=== PATIENT | female | born 1975 | race Caucasian/White ===

== ENCOUNTER 2022-12-25 07:29 | Outpatient (REF) | payer OTHER, SELFPAY ==
--- NOTE | ~2022-12-25 | XR_ITS ---
EXAMINATION: XR CHEST CLINICAL INFORMATION: Chronic cough. COMPARISON: 04/14/2012 TECHNIQUE: 2 views of the chest were obtained. FINDINGS: There is no evidence of acute parenchymal disease, pneumothorax, or pleural effusion. Heart is normal size. No evidence of pulmonary edema. There are some mildly increased interstitial lung markings seen in the mid to lower lungs. No significant bronchial wall thickening is appreciated. XR/XR chest 2V IMPRESSION: No acute disease.
[2022-12-25 08:30] LABS: Hematocrit 41.6 % (37.0-47.0); Hemoglobin 13.9 g/dl (12.0-16.0); Mean Corpuscular HGB Conc 33.4 g/dl (31.0-35.0); Mean Corpuscular Volume 92.9 fL (80.0-98.0); Mean Platelet Volume 10.2 fL (9.4-12.3); Platelet Count 326 X10*3/uL (160-400); Red Blood Count 4.48 X10*6/uL (4.20-5.50); Red Cell Distribution Width 12.9 % (11.0-16.0); White Blood Count 10.8 X10*3/uL (4.8-10.8)
[2022-12-25 08:58] LABS: Alanine Aminotransferase 30 U/L (0-31); Albumin Level 4.1 g/dL (3.5-5.0); Alkaline Phosphatase 82 U/L (39-117); Anion Gap 12 (12-20); Aspartate Amino Transferase 22 U/L (5-31); Bilirubin Total 0.4 mg/dL (0.0-1.0); Blood Urea Nitrogen 9 mg/dL (9-16); Carbon Dioxide 28 mmol/L (22-29); Chloride 104 mmol/L (96-108); Cholesterol 195 mg/dL; Estimated Glomerular Filt Rate > 60; Glucose Fasting 84 mg/dL (60-99); HDL Cholesterol 46 mg/dL; LDL Cholesterol Calculated 129 mg/dl; Sodium 140 mmol/L (135-145); Total Protein 7.6 g/dL (6.5-8.0); Triglycerides 100 mg/dL
[2022-12-25 09:46] LABS: Appearance Urine Clear; Color Urine Yellow; Glucose Urine UA Negative (Negative); Leukocyte Esterase Urine Negative (Negative); Nitrite Urine Negative (Negative); PH 7.5 (5.0-9.0); Specific Gravity - Urine <= 1.005 (1.005-1.025); Urine Blood Negative (Negative); Urine Ketones Negative (Negative); Urine Protein Negative (Neg-Trace)
== END 2022-12-25 07:30 | disposition home or self-care (01) ==
LOC: HO.LAB 07:29
PROVIDERS: PCP Physician Assistant; Visit Provider Physician Assistant
DX: E78.00 Pure hypercholesterolemia, unspecified (principal); R10.9 Unspecified abdominal pain; R30.0 Dysuria; R05.3 Chronic cough
CPT/HCPCS: 36415; 71046; 80053; 80061; 81003; 85027

== ENCOUNTER 2023-01-07 07:37 | Outpatient (REF) | payer OTHER, SELFPAY ==
--- NOTE | ~2023-01-07 | US_ITS ---
EXAMINATION: US RETROPERITONEAL LIMITED (RENAL ONLY) CLINICAL INFORMATION: Unspecified abdominal pain. COMPARISON: None available. TECHNIQUE: Real-time imaging of the kidneys. FINDINGS: RIGHT KIDNEY: 12.9 x 4.8 x 6.3 cm (SAG x AP x TRV). The kidney is normal in size, contour, and echogenicity. Renal cortical thickness is normal. No calculi or focal parenchymal lesions. No hydronephrosis. LEFT KIDNEY: 10.7 x 6.5 x 5.6 cm (SAG x AP x TRV). The kidney is normal in size, contour, and echogenicity. Renal cortical thickness is normal. No calculi or focal parenchymal lesions. No hydronephrosis. US/US renal BI IMPRESSION: Unremarkable renal ultrasound.
== END 2023-01-07 07:38 | disposition home or self-care (01) ==
LOC: HO.US 07:37
PROVIDERS: PCP Physician Assistant; Visit Provider Physician Assistant
DX: R10.9 Unspecified abdominal pain (principal)
CPT/HCPCS: 76775

== ENCOUNTER 2023-02-02 13:57 | Outpatient (AMB) | payer OTHER, SELFPAY ==
--- NOTE | 2023-02-02 13:58 | MHC.PC.OV ---
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 Patient has a pas t medical history significant for ob esity and? HLD, to bacco dependency. Concern--> last v isit we discussed her cough and sinu s congestion, was started on azithro mycin course thoug h felt it was not effective. Does n ot take any allerg y medication or na james sprays at this time. She attrib utes her symptoms to perhaps having mold in her apartm ent that she may b e allergic to. -- >Noted elevated bl ood pressure readi ngs today in offic e. Has had histor y of elevated bloo d pressure reading s. Not interested in starting blood pressure medicati on at this time a to work lifestyle and dietary change s to reducd her BP . .. History of Hy perlipidemia: Rec ent fasting lipid panel showing appr opriate LDL and to theodora cholesterol. Tobacco dependency :? Has been smokin g since age 15, re ports she has incr eased her smoking as of late due to her stress and anx iety.? She does re port having a chrome polisher jose cough that at times is productiv e.? She knows this is a direct resul t of her smoking s he has a lot of is sues stopping smok ing.? Nicotine pat ches and gum have not been affective Laboratory Tests 12/25/22 12/25/22 08:03 08:03 RBC 4.48 Creatinine 0.81 Cholesterol 195 LDL Cholesterol, C alc 129 PFSH Surgical History H/O LEEP Family History Father CVA (cerebral vascular accident), Onset Age: 42 Other Hypertension Substance abuse Social History Housing: Apartment Alcohol intake: former Year quit: 2012 Patient Tobacco Use Status: Current everyday Tobacco user Tobacco use type: Cigarette Cigarette Packs Per Day: 1.5 Cigarettes Per Day: 30 e-Cigarette/Vaping Use: Never Used Second Hand Smoke Exposure: No service: No Current occupational status: unemployed Current occupational exposures/hazards: No Cognitive needs: No Hearing needs: No Vision needs: No Questionnaire Thrive Questionnaire Date Thrive assessed: 12/23/22 AUDIT C Alcohol Use Questionnaire (AUDIT-C) 1. How often do you have a drink containing alcohol?: Never 3. How often do you have six or more drinks on one occasion?: Never Total Score: 0 CATRINA-7 AMB Questionnaire CATRINA-7 Date CATRINA - 7 assessed: 12/23/22 Feeling nervous, anxious, or on edge: 0 = Not at all Not being able to stop or control worryin = Not at all Worrying too much about different things: 0 = Not at all Trouble relaxin = Not at all Being so restless that it is hard to sit still: 0 = Not at all Becoming easily annoyed or irritable: 0 = Not at all Feeling afraid as if something awful might happen: 0 = Not at all Total CATRINA-7 score (0-4 normal; 5-9 mild; 10-14 moderate; 15-21 severe): 0 Source: Developed by Drs. Carlos Manuel Ramsey, Terri Hope, Stuart Woodson and colleagues, with an educational lauren from [employer] CATRINA-7 Assessment Billing CATRINA-7 Assessment Tool: CATRINA-7 Assessment 58356 Review of Systems Const Denies headache(s) Eyes Denies loss of vision ENT Denies vertigo, Denies dizziness, Denies headache(s) and Denies sore throat Card Denies chest pain, Denies leg edema and Denies lightheadedness Resp Denies cough, Denies hemoptysis and Denies wheezing GI Denies abdominal pain, Denies melena, Denies constipation, Denies diarrhea and Denies vomiting Denies urinary frequency, Denies dysuria and Denies urinary urgency Musc Denies arthralgias, Denies joint swelling, Denies numbness and Denies tingling Neuro Denies Abnormal speech present, Denies behavioral changes, Denies vertigo, Denies dizziness, Denies headache(s), Denies loss of vision, Denies memory loss, Denies numbness and Denies tingling Psych Denies anxiety, Denies behavioral changes, Denies depression, Denies memory loss and Denies panic attacks Sukumar/Lymph Denies easy bleeding and Denies easy bruising Aller/Immun Denies wheezing Physical exam (Primary Care) Vital Signs: Last Vital Signs Pulse 86 02/02/23 13:59 BP 140/82 H 02/02/23 13:59 Pulse Ox 98 02/02/23 13:59 Oxygen Delivery Method Room Air 02/02/23 13:59 BMI result Body Mass Index 35.5 BMI Assessment/Plan discussion: High Tobacco/Smoking Status: Tobacco use Status Tobacco use date assessed 02/02/23 02/02/23 14:04 Patient Tobacco Use Status Current everyday Tobacco 02/02/23 14:04 Tobacco use type Cigarette 02/02/23 14:04 e-Cigarette/Vaping Use Never Used 02/02/23 14:04 Are you ready to quit: Yes Tobacco cessation counseling provided: Yes Relapse Prevention: discussed the importance of a supportive environment, discussed negative mood or depression after quitting, weight gain after smoking is common and discussed dietary, exercise and/or lifestyle changes Number of minutes spent counselin CPT code: 92462 - 4-10 Minutes Thrive Assessment: Date of Thrive Assessment Date Thrive assessed 12/23/22 02/02/23 14:04 Const Other: OBESE General: healthy appearing, no acute distress, alert and awake Nutritional Appearance: well nourished Orientation/consciousness: oriented to person, oriented to place and oriented to time HENMT Other: MILD FRONTAL SINUS TENDERNESS TO PALPATION Ears: TM's normal bilaterally General nose exam: Normal nasal mucous membranes and turbinates present Eyes Conjunctivae: conjunctivae normal Sclerae: sclerae normal Pupils: Equal, round and reactive pupils present Neck Neck: Yes no lymphadenopathy and Yes no JVD Thyroid: Thyroid normal Carotids: no bruits Resp Other: OCCASIONAL DRY COUGH DURING EXAM Effort & Inspection: normal respiratory effort, Actively coughing and not tachypneic Auscultation: no crackles, no rales, no rhonchi and no wheezes Cardio Rate: regular rate Rhythm: regular rhythm Heart sounds: no murmurs and normal S1 and S2 GI Palpation (GI): Soft to palpation, nontender, no hepatomegaly and no splenomegaly Auscultation: normal bowel sounds Skin General skin exam: no rashes or lesions noted and dry skin Neuro General: oriented to person, oriented to place and oriented to time Cranial nerves: Yes Equal, round and reactive pupils present Speech: No Abnormal speech present Gait exam (Neuro): Normal gait present Motor exam (neuro): no tremor noted Extrem Right upper extremity: full ROM Left upper extremity: full ROM Right lower extremity: full ROM; no edema Left lower extremity: full ROM; no edema Psych Mental Status: mental status grossly normal Speech and movement: Normal speech and movement present Affect: normal affect Attitude: cooperative Thought process: Normal thought process present Assessment and Plan Assessment & Plan (1) Tobacco dependence: Code(s): F17.200 - Nicotine dependence, unspecified, uncomplicated Plan: Patient does understand she needs to quit smoking and is willing to try nicotine lozenges to help her quit smoking. (2) Obese: Code(s): E66.9 - Obesity, unspecified Qualifiers: Body mass index: BMI 35.0-35.9 Obesity classification: adult class 2 (BMI 35 - 39.9) Obesity type: due to excess calories Serious obesity comorbidity presence: without serious comorbidity Qualified Code(s): E66.09 - Other obesity due to excess calories; Z68.35 - Body mass index [BMI] 35.0-35.9, adult Plan: Patient does understand her BMI is over 30 will work on being more physically active and adapting to better eating habits to reduce her weight (3) Allergic rhinitis: Code(s): J30.9 - Allergic rhinitis, unspecified Qualifiers: Allergic rhinitis seasonality: unspecified Allergic rhinitis trigger: other Qualified Code(s): J30.89 - Other allergic rhinitis Plan: Patient does have signs and symptoms of allergic rhinitis and sinusitis. She believes she has mold in her apartment that she has discussed with her landlord whom is not taking initiative. Due to her pulmonary issues with COPD ? asthma I Will try to set her up with a home visit to evaluate her home for by mental factors causing her cough. (4) CATRINA (generalized anxiety disorder): Code(s): F41.1 - Generalized anxiety disorder Plan: Patient reports her anxiety is fairly well controlled. She does have personal issues at home that causes her stress and anxiety. She does use lorazepam on a very limited p.r.n. basis (5) HTN (hypertension): Code(s): I10 - Essential (primary) hypertension Qualifiers: Hypertension type: primary hypertension Qualified Code(s): I10 - Essential (primary) hypertension Plan: Patient's blood pressure elevated today in office. Has had elevated blood pressure readings at previous MD visits. Advised on starting low-dose blood pressure medication though patient would like to continue working on lifestyle nonpharmacological treatments for her blood pressure at this time. Medications: New loratadine 10 mg PO DAILY 30 days 30 tabs 3RF J30.9 - Allergic rhinitis, unspecified fluticasone propionate 50 mcg/actuation (Flonase Allergy Relief) administer into each nostril 1 spray intranasal BID 30 days 16 grams 1RF J30.9 - Allergic rhinitis, unspecified nicotine (polacrilex) 2 mg buccal Q2H 15 days PRN 110 ea 0RF nicotine cravings F17.200 - Nicotine dependence, unspecified, uncomplicated Coding Level of Care Code Est Pt Level 4 (42193) Diagnoses Tobacco dependence F17.200 Obese E66.09; Z68.35 Body mass index: BMI 35.0-35.9 Obesity classification: adult class 2 (BMI 35 - 39.9) Obesity type: due to excess calories Serious obesity comorbidity presence: without serious comorbidity Allergic rhinitis J30.89 Allergic rhinitis seasonality: unspecified Allergic rhinitis trigger: other CATRINA (generalized anxiety disorder) F41.1 HTN (hypertension) I10 Hypertension type: primary hypertension Additional Codes CATRINA-7 Assessment Billing - CATRINA-7 Assessment Tool: CATRINA-7 Assessment 54246 ([id number]) Vital Signs *Quality* - CPT code: 67631 - 4-10 Minutes ([id number])
[2023-02-02 13:59] VITALS: BP 140/82; PULSE 86; O2SAT 98; BMI 35.5
== END 2023-02-02 14:27 | disposition home or self-care (01) ==
PROVIDERS: PCP Physician Assistant; Visit Provider Physician Assistant
DX: I10 Essential (primary) hypertension (principal); F17.210 Nicotine dependence, cigarettes, uncomplicated; E66.09 Other obesity due to excess calories; Z68.35 Body mass index [BMI] 35.0-35.9, adult; J30.89 Other allergic rhinitis; F41.1 Generalized anxiety disorder
CPT/HCPCS: 99214; 99406

== ENCOUNTER 2023-07-14 13:39 | Outpatient (AMB) | payer OTHER, SELFPAY ==
--- NOTE | 2023-07-14 13:44 | MHC.PC.OV ---
Vital Signs 07/14/23 13:45 Height 5 ft 7 in Weight 215 lb BMI 33.7 BP 160/88 H Blood Pressure Location Lt brachial Position Sitting Respiration 18 Pulse 86 Pulse Source Palpation Intake Visit Reasons: Check up Intake Note: Patient is here to follow up on COPD. Pt has been wheezing since last visit. Medical Resident Required: No Accompanied by: Self / Same As Patient Allergies No Known Allergies Allergy (Verified 07/14/23 13:53) Medication List - Last Reconciled 07/14/23 by Mau Noriega PA-C albuterol sulfate 90 mcg/actuation 1 inh inhalation QID 30 days fluticasone propionate 50 mcg/actuation (Flonase Allergy Relief) 1 spray intranasal BID 30 days loratadine 10 mg PO DAILY 30 days lorazepam 0.5 mg PO DAILY PRN 10 days nicotine (polacrilex) 2 mg buccal Q2H PRN 15 days Tobacco use date assessed: 07/14/23 Dental Screening Dental Screen Date: 07/14/23 Did you have a dental visit in the last 12 months?: Yes Did you have a dental problem in the last 6 months where you did not have access to dental care?: No Was dental information given to patient?: Patient has dentist HPI Check up HPI Details Patient is a 47-year-old female here today for follow-up visit Patient has a past medical history significant for obesity and? HLD, tobacco dependency. Concern--> HTN : Patient's blood pressure elevated today in office. She has lost weight drinking a new tea. She is now willing to start blood pressure medication. .. History of Hyperlipidemia: Recent fasting lipid panel showing appropriate LDL and total cholesterol. Tobacco dependency:? Has been smoking since age 15, reports she has increased her smoking as of late due to her stress and anxiety.? She does report having a chronic cough that at times is productive.? She knows this is a direct result of her smoking she has a lot of issues stopping smoking.? Nicotine patches and gum have not been affective. Seems to have COPD thus will start maintenance inhaler for better control over her COPD symptoms. She is willing to try generic Chantix to completely quit smoking. Laboratory Tests 12/25/22 08:03 Cholesterol 195 PFSH Surgical History H/O LEEP Family History Father CVA (cerebral vascular accident), Onset Age: 42 Other Hypertension Substance abuse Social History Housing: Apartment Alcohol intake: former Year quit: 2013 Patient Tobacco Use Status: Current everyday Tobacco user Tobacco use type: Cigarette Cigarette Packs Per Day: 1.5 Cigarettes Per Day: 30 e-Cigarette/Vaping Use: Never Used Second Hand Smoke Exposure: No service: No Current occupational status: unemployed Current occupational exposures/hazards: No Cognitive needs: No Hearing needs: No Vision needs: No Questionnaire PHQ-9 Over the last 2 weeks, how often have you been bothered by any of the following problems? 1. Little interest or pleasure in doing things: not at all 2. Feeling down, depressed, or hopeless: not at all 3. Trouble falling or staying asleep, or sleeping too much: not at all 4. Feeling tired or having little energy: not at all 5. Poor appetite or overeating: not at all 6. Feeling bad about yourself - or that you are a failure or have let yourself or your family down: not at all 7. Trouble concentrating on things, such as reading the newspaper or watching television: not at all 8. Moving or speaking so slowly that other people could have noticed. Or the opposite - being so fidgety or restless that you have been moving around a lot more than usual: not at all 9. Thoughts that you would be better off or of hurting yourself in some way: not at all Total score: 0 Depression Screening Interpretation: Negative Depression Screening Done: Yes 12268 - PHQ-9 Billing: Yes Source: Developed by Drs. Carlos Manuel Ramsey, Terri Hope, Stuart Woodson and colleagues, with an educational lauren from [employer]. Thrive Questionnaire Date Thrive assessed: 07/14/23 I am a: Patient What is your living situation today?: I have a steady place to live Within the past 12 months, did the food you bought not last and you didn't have the money to get more?: Never true Within the past 12 months, did you worry whether your food would run out before you got money to buy more?: Never true Do you have trouble paying for medicines?: No Do you have trouble getting transportation to medical appointments?: No Do you have trouble paying your heating and electricity bill?: No Do you have trouble taking care of your child, family member or friend?: No Do you have trouble with day-to-day activities such as bathing, preparing meals, shopping, managing finances, etc.?: No Are you currently unemployed and looking for a job?: No Are you interested in more education?: No Please select the resources that you would like help with: None Currently or been in a relationship where the following occur: no concerns reported AUDIT C Alcohol Use Questionnaire (AUDIT-C) 1. How often do you have a drink containing alcohol?: Never 3. How often do you have six or more drinks on one occasion?: Never Total Score: 0 CATRINA-7 AMB Questionnaire CATRINA-7 Date CATRINA - 7 assessed: 07/14/23 Feeling nervous, anxious, or on edge: 2 = More than half the days Not being able to stop or control worryin = Nearly every day Worrying too much about different things: 1 = Several days Trouble relaxin = Nearly every day Being so restless that it is hard to sit still: 2 = More than half the days Becoming easily annoyed or irritable: 2 = More than half the days Feeling afraid as if something awful might happen: 3 = Nearly every day Total CATRINA-7 score (0-4 normal; 5-9 mild; 10-14 moderate; 15-21 severe): 16 Source: Developed by Drs. Carlos Manuel Ramsey, Terri Hope, Stuart Woodson and colleagues, with an educational lauren from [employer]. CATRINA-7 Assessment Billing CATRINA-7 Assessment Tool: CATRINA-7 Assessment 83030 Physical exam (Primary Care) Vital Signs: Last Vital Signs Pulse 86 07/14/23 13:45 Resp 18 07/14/23 13:45 BP 160/88 H 07/14/23 13:45 BMI result Body Mass Index 33.7 BMI Assessment/Plan discussion: High Tobacco/Smoking Status: Tobacco use Status Tobacco use date assessed 07/14/23 07/14/23 13:51 Patient Tobacco Use Status Current everyday Tobacco 07/14/23 13:45 Tobacco use type Cigarette 07/14/23 13:45 e-Cigarette/Vaping Use Never Used 07/14/23 13:45 Are you ready to quit: Yes Tobacco cessation counseling provided: Yes Items discussed: Nicotine replacement Relapse Prevention: discussed the importance of a supportive environment, discussed negative mood or depression after quitting, weight gain after smoking is common and discussed dietary, exercise and/or lifestyle changes Number of minutes spent counselin CPT code: 14996 - 4-10 Minutes PHQ-9: PHQ-9 Score PHQ-9: Total score 0 07/14/23 13:51 Depression Screening Interpretation: Negative Thrive Assessment: Date of Thrive Assessment Date Thrive assessed 07/14/23 07/14/23 13:51 Currently or been in a relationship where the following occur: no concerns reported Const Other: OBESE Assessment and Plan Assessment & Plan (1) HTN (hypertension): Code(s): I10 - Essential (primary) hypertension Qualifiers: Hypertension type: primary hypertension Qualified Code(s): I10 - Essential (primary) hypertension Plan: Patient's blood pressure remains elevated today in office. She is now willing to start hydrochlorothiazide 12.5 mg. Advised to monitor blood pressure at home with goal blood pressure to be below 140/90 (2) Tobacco dependence: Code(s): F17.200 - Nicotine dependence, unspecified, uncomplicated Plan: Can use to smoke a pack a cigarettes per day. She is somewhat interested in trying different nicotine replacement and trying generic Chantix. Will follow-up in 3 weeks to evaluate the effectiveness of the medication. (3) Obese: Code(s): E66.9 - Obesity, unspecified Qualifiers: Obesity type: due to excess calories Obesity classification: adult class 2 (BMI 35 - 39.9) Serious obesity comorbidity presence: without serious comorbidity Body mass index: BMI 35.0-35.9 Qualified Code(s): E66.09 - Other obesity due to excess calories; Z68.35 - Body mass index [BMI] 35.0-35.9, adult Plan: Patient does understand her BMI is over 30 will work on being more physically active and adapting to better eating habits to reduce her weight (4) CATRINA (generalized anxiety disorder): Code(s): F41.1 - Generalized anxiety disorder Plan: Patient's CATRINA-7 score positive for anxiety which has been existing condition for her. Patient reports her anxiety is fairly well controlled. She does have personal issues at home that causes her stress and anxiety. She does use lorazepam on a very limited p.r.n. basis Orders: Orders PFT pulmonary function test Today J41.0 - Simple chronic bronchitis CT chest w IV con Today F17.200 - Nicotine dependence, unspecified, uncomplicated, J44.9 - Chronic obstructive pulmonary disease, unspecified, R07.81 - Pleurodynia Medications: New hydrochlorothiazide 12.5 mg PO DAILY 30 days 30 tabs 3RF I10 - Essential (primary) hypertension varenicline 0.5 mg PO; Take 0.5 mg qd x 3 days, then 0.5 mg b.i.d. x4 days 7 days 11 tabs 0RF F17.200 - Nicotine dependence, unspecified, uncomplicated varenicline 1 mg PO BID 28 days 56 tabs 3RF F17.200 - Nicotine dependence, unspecified, uncomplicated blood pressure test kit-large Testing once a day as needed 1 ea 0RF I10 - Essential (primary) hypertension budesonide-formoterol 160-4.5 mcg/actuation (Symbicort) 1 inh inhalation BID 30 days 10.2 grams 3RF J41.0 - Simple chronic bronchitis nicotine 1 patch transdermal DAILY 14 days 14 ea 0RF F17.200 - Nicotine dependence, unspecified, uncomplicated Refilled lorazepam 0.5 mg PO DAILY 10 days PRN 10 tabs 0RF anxiety F41.1 - Generalized anxiety disorder Discontinued nicotine (polacrilex) Discontinued Reason: Doctor's Order 2 mg buccal Q2H 15 days PRN 110 ea 0RF nicotine cravings F17.200 - Nicotine dependence, unspecified, uncomplicated Coding Level of Care Code Est Pt Level 4 (63436) Diagnoses Primary hypertension I10 Hypertension type: primary hypertension Tobacco dependence F17.200 Class 2 obesity due to excess calories without serious comorbidity with body mass index (BMI) of 35.0 to 35.9 in adult E66.09; Z68.35 Obesity type: due to excess calories Obesity classification: adult class 2 (BMI 35 - 39.9) Serious obesity comorbidity presence: without serious comorbidity Body mass index: BMI 35.0-35.9 CATRINA (generalized anxiety disorder) F41.1 Additional Codes CATRINA-7 Assessment Billing - CATRINA-7 Assessment Tool: CATRINA-7 Assessment 18489 ([id number]) Vital Signs *Quality* - CPT code: 89439 - 4-10 Minutes ([id number])
[2023-07-14 13:45] VITALS: BP 160/88; PULSE 86; RESP 18; BMI 33.7
== END 2023-07-14 14:14 | disposition home or self-care (01) ==
PROVIDERS: PCP Physician Assistant; Visit Provider Physician Assistant
DX: I10 Essential (primary) hypertension (principal); E66.09 Other obesity due to excess calories; Z68.35 Body mass index [BMI] 35.0-35.9, adult; F17.210 Nicotine dependence, cigarettes, uncomplicated; F41.1 Generalized anxiety disorder
CPT/HCPCS: 99214

== ENCOUNTER 2023-08-31 10:53 | Outpatient (AMB) | payer OTHER, SELFPAY ==
--- NOTE | 2023-08-31 11:08 | MHC.PC.OV ---
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 Accompanied by: Self / Same As Patient Allergies No Known Allergies Allergy (Verified 08/31/23 11:33) Medication List - Last Reconciled 08/31/23 by Mau Noriega PA-C albuterol sulfate 90 mcg/actuation 1 inh inhalation QID 30 days blood pressure test kit-large Testing once a day as needed budesonide-formoterol 160-4.5 mcg/actuation (Symbicort) 1 inh inhalation BID 30 days fluticasone propionate 50 mcg/actuation (Flonase Allergy Relief) 1 spray intranasal BID 30 days hydrochlorothiazide 12.5 mg PO DAILY 30 days loratadine 10 mg PO DAILY 30 days lorazepam 0.5 mg PO DAILY PRN 10 days nicotine 1 patch transdermal DAILY 14 days varenicline 0.5 mg PO; Take 0.5 mg qd x 3 days, then 0.5 mg b.i.d. x4 days 7 days varenicline 1 mg PO BID 28 days Tobacco use date assessed: 08/31/23 Dental Screening Dental Screen Date: 08/31/23 Did you have a dental visit in the last 12 months?: Yes Did you have a dental problem in the last 6 months where you did not have access to dental care?: No Was dental information given to patient?: Patient has dentist HPI f/u smoking cessation HPI Details Patient is a 48-year-old female here today for follow-up visit Patient has a past medical history significant for obesity and? HLD, tobacco dependency. Concern--> reports having left elbow and forearm pain over the last couple weeks. She denies any trauma to her left elbow though reports using her upper extremities a lot. Also reports having intermittent episode of right upper quadrant abdominal pain for the last year. He reports the pain is very sharp at times in her right upper quadrant and in her right flank. Of note still has her gallbladder. Will send for ultrasound to evaluate for gallstones. .. HTN : Patient's blood pressure more acceptable today in office. Has started hydrochlorothiazide 12.5 without any notable side effects. .. History of Hyperlipidemia: Recent fasting lipid panel showing appropriate LDL and total cholesterol. COPD/Tobacco dependency:? Has been smoking since age 15, recently started Chantix which has helped her drastically reduced the amount of cigarettes she is smoking. She reports smoking now 7 cigarettes per day from 25 cigarettes a day. She also reports her breathing has been much better since she has reduced her cigarette smoking. PFSH Surgical History H/O LEEP Family History Father CVA (cerebral vascular accident), Onset Age: 42 Other Hypertension Substance abuse Social History Housing: Apartment Alcohol intake: former Year quit: 2012 Patient Tobacco Use Status: Current everyday Tobacco user Tobacco use type: Cigarette Cigarette Packs Per Day: 1.5 Cigarettes Per Day: 30 e-Cigarette/Vaping Use: Never Used Second Hand Smoke Exposure: No service: No Current occupational status: unemployed Current occupational exposures/hazards: No Cognitive needs: No Hearing needs: No Vision needs: No Questionnaire Thrive Questionnaire Date Thrive assessed: 07/14/23 CATRINA-7 AMB Questionnaire CATRINA-7 Date CATRINA - 7 assessed: 07/14/23 Source: Developed by Drs. Carlos Manuel Ramsey, Terri Hope, Stuart Woodson and colleagues, with an educational lauren from [employer]. Review of Systems Const Denies headache(s) Eyes Denies loss of vision ENT Denies vertigo, Denies dizziness, Denies headache(s) and Denies sore throat Card Denies chest pain, Denies leg edema and Denies lightheadedness Resp Denies cough, Denies hemoptysis and Denies wheezing GI Denies abdominal pain, Denies melena, Denies constipation, Denies diarrhea and Denies vomiting Denies urinary frequency, Denies dysuria and Denies urinary urgency Musc Denies arthralgias, Denies joint swelling, Denies numbness and Denies tingling Neuro Denies Abnormal speech present, Denies behavioral changes, Denies vertigo, Denies dizziness, Denies headache(s), Denies loss of vision, Denies memory loss, Denies numbness and Denies tingling Psych Denies anxiety, Denies behavioral changes, Denies depression, Denies memory loss and Denies panic attacks Sukumar/Lymph Denies easy bleeding and Denies easy bruising Aller/Immun Denies wheezing Physical exam (Primary Care) Vital Signs: Last Vital Signs Pulse 70 08/31/23 11:09 BP 130/68 08/31/23 11:09 Pulse Ox 98 08/31/23 11:09 Oxygen Delivery Method Room Air 08/31/23 11:09 BMI result Body Mass Index 33.2 BMI Assessment/Plan discussion: High Tobacco/Smoking Status: Tobacco use Status Tobacco use date assessed 08/31/23 08/31/23 11:11 Patient Tobacco Use Status Current everyday Tobacco 08/31/23 11:11 Tobacco use type Cigarette 08/31/23 11:11 e-Cigarette/Vaping Use Never Used 08/31/23 11:11 Are you ready to quit: Yes Tobacco cessation counseling provided: Yes Items discussed: [employer] and Other Relapse Prevention: discussed the importance of a supportive environment, discussed negative mood or depression after quitting, weight gain after smoking is common and discussed dietary, exercise and/or lifestyle changes Number of minutes spent counselin CPT code: 86378 - 4-10 Minutes Thrive Assessment: Date of Thrive Assessment Date Thrive assessed 07/14/23 08/31/23 11:11 Const General: healthy appearing, no acute distress, alert and awake Nutritional Appearance: well nourished Orientation/consciousness: oriented to person, oriented to place and oriented to time HENMT Ears: TM's normal bilaterally General nose exam: Normal nasal mucous membranes and turbinates present Eyes Conjunctivae: conjunctivae normal Sclerae: sclerae normal Pupils: Equal, round and reactive pupils present Neck Neck: Yes no lymphadenopathy and Yes no JVD Thyroid: Thyroid normal Carotids: no bruits Resp Effort & Inspection: normal respiratory effort and not tachypneic Auscultation: no crackles, no rales, no rhonchi and no wheezes Cardio Rate: regular rate Rhythm: regular rhythm Heart sounds: no murmurs and normal S1 and S2 GI Palpation (GI): Soft to palpation, nontender, no hepatomegaly and no splenomegaly Auscultation: normal bowel sounds Skin General skin exam: no rashes or lesions noted and dry skin Neuro General: oriented to person, oriented to place and oriented to time Cranial nerves: Yes Equal, round and reactive pupils present Speech: No Abnormal speech present Gait exam (Neuro): Normal gait present Motor exam (neuro): no tremor noted Extrem Right upper extremity: full ROM Left upper extremity: full ROM Right lower extremity: full ROM; no edema Left lower extremity: full ROM; no edema Psych Mental Status: mental status grossly normal Speech and movement: Normal speech and movement present Affect: normal affect Attitude: cooperative Thought process: Normal thought process present Assessment and Plan Assessment & Plan (1) HTN (hypertension): Code(s): I10 - Essential (primary) hypertension Qualifiers: Hypertension type: primary hypertension Qualified Code(s): I10 - Essential (primary) hypertension Plan: Patient's blood pressure acceptable today in office. Been hydrochlorothiazide 12.5 without any side effects.. Advised to monitor blood pressure at home with goal blood pressure to be below 140/90 (2) Tobacco dependence: Code(s): F17.200 - Nicotine dependence, unspecified, uncomplicated Plan: She has started Chantix which has benefit her greatly. She is down down to 7 cigarettes per day from 25 cigarettes a day.. She reports her breathing has been improved. She does have an upcoming CT scan of her chest in September 2023. (3) Obese: Code(s): E66.9 - Obesity, unspecified Qualifiers: Body mass index: BMI 35.0-35.9 Obesity classification: adult class 2 (BMI 35 - 39.9) Obesity type: due to excess calories Serious obesity comorbidity presence: without serious comorbidity Qualified Code(s): E66.09 - Other obesity due to excess calories; Z68.35 - Body mass index [BMI] 35.0-35.9, adult Plan: Has lost a few lb since last office visit. Patient does understand her BMI is over 30 will work on being more physically active and adapting to better eating habits to reduce her weight (4) RUQ abdominal pain: Code(s): R10.11 - Right upper quadrant pain Plan: Has a 1 year history of intermittent right upper quadrant abdominal pain. Signs and symptoms concerning for biliary colic. Will send for ultrasound to evaluate for gallstones (5) Left elbow tendonitis: Code(s): M77.8 - Other enthesopathies, not elsewhere classified Plan: Reports a few week history of left elbow pain to palpation. Denies any trauma to her left elbow. Appears to be a tendinitis. Will supply patient with NSAID to use on as-needed basis. Orders: Orders Lipid Panel Today E78.00 - Pure hypercholesterolemia, unspecified Microalbumin, Random (w Creat) Today I10 - Essential (primary) hypertension US abdomen limited Today R10.11 - Right upper quadrant pain Comprehensive [place]. Panel Fast Today I10 - Essential (primary) hypertension Medications: New meloxicam 15 mg PO DAILY 15 days 15 tabs 3RF M77.8 - Other enthesopathies, not elsewhere classified Discontinued varenicline Discontinued Reason: Doctor's Order 0.5 mg PO; Take 0.5 mg qd x 3 days, then 0.5 mg b.i.d. x4 days 7 days 11 tabs 0RF F17.200 - Nicotine dependence, unspecified, uncomplicated Coding Level of Care Code Est Pt Level 4 (65717) Diagnoses Primary hypertension I10 Hypertension type: primary hypertension Tobacco dependence F17.200 Class 2 obesity due to excess calories without serious comorbidity with body mass index (BMI) of 35.0 to 35.9 in adult E66.09; Z68.35 Body mass index: BMI 35.0-35.9 Obesity classification: adult class 2 (BMI 35 - 39.9) Obesity type: due to excess calories Serious obesity comorbidity presence: without serious comorbidity RUQ abdominal pain R10.11 Left elbow tendonitis M77.8 Additional Codes Vital Signs *Quality* - CPT code: 97823 - 4-10 Minutes ([id number])
[2023-08-31 11:09] VITALS: BP 130/68; PULSE 70; O2SAT 98; BMI 33.2
== END 2023-08-31 11:45 | disposition home or self-care (01) ==
PROVIDERS: PCP Physician Assistant; Visit Provider Physician Assistant
DX: I10 Essential (primary) hypertension (principal); F17.200 Nicotine dependence, unspecified, uncomplicated; E66.09 Other obesity due to excess calories; Z68.35 Body mass index [BMI] 35.0-35.9, adult; R10.11 Right upper quadrant pain; M77.8 Other enthesopathies, not elsewhere classified
CPT/HCPCS: 99214; 99406

== ENCOUNTER 2023-09-21 09:23 | Outpatient (REF) | payer OTHER, SELFPAY ==
--- NOTE | ~2023-09-21 | US_ITS ---
EXAMINATION: US ABDOMEN LIMITED CLINICAL INFORMATION: Right upper quadrant pain. Biliary colic. Evaluate for gallstones. COMPARISON: Renal ultrasound 01/07/2023. TECHNIQUE: Real-time imaging of the right upper quadrant abdominal viscera. FINDINGS: PANCREAS: Normal. LIVER: Normal. The liver is normal in size. The liver contour is normal. Parenchymal echogenicity is normal. No focal hepatic lesion. There is no intrahepatic biliary duct dilatation seen. GALLBLADDER: Normal. The gallbladder is physiologically distended without evidence of stones, sludge, polyps, wall thickening or pericholecystic fluid. COMMON BILE DUCT: Normal in caliber measuring 0.3 cm in diameter. RIGHT KIDNEY: Normal. No hydronephrosis. No renal calculi or focal parenchymal lesions. The kidney measures 12.3 cm in maximum dimension. FREE FLUID: None. US/US abdomen limited IMPRESSION: No cholelithiasis or biliary ductal dilatation.
== END 2023-09-21 09:24 | disposition home or self-care (01) ==
LOC: HO.US 09:23
PROVIDERS: PCP Physician Assistant; Visit Provider Physician Assistant
DX: R10.11 Right upper quadrant pain (principal)
CPT/HCPCS: 76705

== ENCOUNTER 2024-03-29 08:45 | Outpatient (AMB) | payer OTHER, SELFPAY ==
--- NOTE | 2024-03-29 09:07 | MHC.PC.OV ---
Vital Signs 03/29/24 09:08 Height 5 ft 7 in Weight 201 lb 6 oz BMI 31.5 BP 132/66 Blood Pressure Location Lt brachial Position Sitting Pulse 72 Pulse Source Pulse Oximeter Pulse Oximetry (%) 93 Oxygen Delivery Method Room Air Intake Visit Reasons: annual exam Intake Note: Patient is here today for a physical. 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 Required: No Accompanied by: Self / Same As Patient Allergies No Known Allergies Allergy (Verified 03/29/24 09:20) Medication List - Last Reconciled 03/29/24 by Mau Noriega PA-C albuterol sulfate 90 mcg/actuation 1 inh inhalation QID 30 days blood pressure test kit-large Testing once a day as needed budesonide-formoterol 160-4.5 mcg/actuation (Symbicort) 1 inh inhalation BID 30 days fluticasone propionate 50 mcg/actuation (Flonase Allergy Relief) 1 spray intranasal BID 30 days hydrochlorothiazide 12.5 mg PO DAILY loratadine 10 mg PO DAILY 30 days lorazepam 0.5 mg PO DAILY PRN 10 days meloxicam 15 mg PO DAILY 15 days nicotine 1 patch transdermal DAILY 14 days Tobacco use date assessed: 08/31/23 Dental Screening Dental Screen Date: 08/31/23 HPI annual exam HPI Details Patient is a 48-year-old female here today for a routine annual physical Patient has a past medical history significant for obesity and? HLD, tobacco dependency. Concern--> has had a productive cough over last week. Reports some tightness in her chest as well. Unfortunately still smoking though has cut down drastically .. HTN : Patient's blood pressure more acceptable today in office. Has started hydrochlorothiazide 12.5 without any notable side effects. .. History of Hyperlipidemia: Recent fasting lipid panel showing appropriate LDL and total cholesterol. COPD/Tobacco dependency:? Has been smoking since age 15, recently started Chantix which has helped her drastically reduced the amount of cigarettes she is smoking. She reports smoking now 7 cigarettes per day from 25 cigarettes a day. She also reports her breathing has been much better since she has reduced her cigarette smoking. Mammogram: needs mammo. Vaccines: Needs pneumonia, considering flu - declines all vaccine Data Analyst Report Writer: Needs SPECIAL INVESTIGATOR provider colon cancer screening: willing to do cologaurd. FORMERLY [facility], [facility]–1983 Surgical History H/O LEEP Family History (Updated 03/29/24 @ 09:26 by Mau Noriega PA-C) Father CVA (cerebral vascular accident), Onset Age: 42 Mother DMII (diabetes mellitus, type 2) Other Hypertension Substance abuse Social History (Updated 03/29/24 @ 09:27 by Mau Noriega PA-C) Housing: Apartment Alcohol intake: former Year quit: 2013 Patient Tobacco Use Status: Current everyday Tobacco user Tobacco use type: Cigarette Cigarettes Per Day: 3 e-Cigarette/Vaping Use: Never Used Second Hand Smoke Exposure: No service: No Current occupational status: employed 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 1. Little interest or pleasure in doing things: not at all 2. Feeling down, depressed, or hopeless: not at all 3. Trouble falling or staying asleep, or sleeping too much: not at all 4. Feeling tired or having little energy: not at all 5. Poor appetite or overeating: not at all 6. Feeling bad about yourself - or that you are a failure or have let yourself or your family down: not at all 7. Trouble concentrating on things, such as reading the newspaper or watching television: not at all 8. Moving or speaking so slowly that other people could have noticed. Or the opposite - being so fidgety or restless that you have been moving around a lot more than usual: not at all 9. Thoughts that you would be better off or of hurting yourself in some way: not at all Total score: 0 Depression Screening Interpretation: Negative Depression Screening Done: Yes 24514 - PHQ-9 Billing: Yes Source: Developed by Drs. Carlos Manuel Ramsey, Terri Hope, Stuart Woodson and colleagues, with an educational lauren from [employer]. Thrive Questionnaire Date Thrive assessed: 03/29/24 I am a: Patient What is your living situation today?: I have a steady place to live Within the past 12 months, did the food you bought not last and you didn't have the money to get more?: Never true Within the past 12 months, did you worry whether your food would run out before you got money to buy more?: I choose not to answer this question Do you have trouble paying for medicines?: No Do you have trouble getting transportation to medical appointments?: No Do you have trouble paying your heating and electricity bill?: No Do you have trouble taking care of your child, family member or friend?: No Do you have trouble with day-to-day activities such as bathing, preparing meals, shopping, managing finances, etc.?: No Are you currently unemployed and looking for a job?: No Are you interested in more education?: No Please select the resources that you would like help with: None Currently or been in a relationship where the following occur: No concerns reported THRIVE Score: 0 AUDIT C Alcohol Use Questionnaire (AUDIT-C) 1. How often do you have a drink containing alcohol?: Never 3. How often do you have six or more drinks on one occasion?: Never Total Score: 0 CATRINA-7 AMB Questionnaire CATRINA-7 Date CATRINA - 7 assessed: 03/29/24 Feeling nervous, anxious, or on edge: 1 = Several days Not being able to stop or control worryin = Several days Worrying too much about different things: 1 = Several days Trouble relaxin = More than half the days Being so restless that it is hard to sit still: 0 = Not at all Becoming easily annoyed or irritable: 1 = Several days Feeling afraid as if something awful might happen: 1 = Several days Total CATRINA-7 score (0-4 normal; 5-9 mild; 10-14 moderate; 15-21 severe): 7 Source: Developed by Drs. Carlos Manuel Ramsey, Terri Hope, Stuart Woodson and colleagues, with an educational lauren from [employer]. CATRINA-7 Assessment Billing CATRINA-7 Assessment Tool: CATRINA-7 Assessment 60430 Review of Systems Const Denies body aches, Denies chills, Denies excessive sweating, Denies fatigue, Denies fever(s) and Denies headache(s) Eyes Denies blurry vision ENT Denies dysphagia, Denies vertigo, Denies dizziness, Denies headache(s), Denies hearing loss and Denies tinnitus Card Denies chest pain, Denies chest pain with activity, Denies syncope, Denies irregular heart rhythm and Denies dyspnea Resp Reports chest congestion, Reports cough, Denies hemoptysis, Denies dyspnea and Reports wheezing GI Denies abdominal pain, Denies melena, Denies hematochezia, Denies coffee ground emesis, Denies dysphagia, Denies diarrhea, Denies nausea and Denies vomiting Denies urinary frequency, Denies dysuria, Denies urinary hesitancy and Denies urinary urgency Musc Denies arthralgias, Denies limited range of motion, Denies muscle cramps and Denies muscle weakness Skin/Breast Denies rash and Denies skin ulcer Neuro Denies Abnormal speech present, Denies confusion, Denies vertigo, Denies dizziness, Denies syncope, Denies headache(s), Denies memory loss and Denies seizure-like activity Psych Denies anxiety, Denies confusion, Denies depression, Denies memory loss, Denies panic attacks and Denies paranoia Endo Denies excessive sweating, Denies fatigue, Denies flushing, Denies polydipsia and Denies polyuria Aller/Immun Reports wheezing Physical exam (Primary Care) Vital Signs: Last Vital Signs Pulse 72 03/29/24 09:08 BP 132/66 03/29/24 09:08 Pulse Ox 93 03/29/24 09:08 Oxygen Delivery Method Room Air 03/29/24 09:08 BMI result Body Mass Index 31.5 Tobacco/Smoking Status: Tobacco use Status Tobacco use date assessed 08/31/23 03/29/24 09:07 Patient Tobacco Use Status Current everyday Tobacco 03/29/24 09:27 Tobacco use type Cigarette 03/29/24 09:27 e-Cigarette/Vaping Use Never Used 03/29/24 09:27 Are you ready to quit: No Tobacco cessation counseling provided: Yes Items discussed: Nicotine replacement and QuitWorks Relapse Prevention: discussed the importance of a supportive environment, discussed negative mood or depression after quitting, weight gain after smoking is common and discussed dietary, exercise and/or lifestyle changes Number of minutes spent counselin CPT code: 15525 - 4-10 Minutes PHQ-9: PHQ-9 Score PHQ-9: Total score 0 03/29/24 09:22 Depression Screening Interpretation: Negative Thrive Assessment: Date of Thrive Assessment Date Thrive assessed 03/29/24 03/29/24 09:15 Currently or been in a relationship where the following occur: No concerns reported Const General: cooperative, comfortable, no acute distress, alert and awake; No confusion Orientation/consciousness: oriented to person, oriented to place, patient oriented x3 and No confusion HENMT Head: Yes normocephalic Ears: external ears normal and TM's normal bilaterally Face and sinus: No sinus tenderness Mouth: Normal oral and palatal mucosa present and tongue normal Teeth and gingiva: dentition normal and gingiva normal Throat: Yes posterior oropharynx normal, Yes tonsils normal and Yes uvula midline Eyes Conjunctivae: conjunctivae normal Sclerae: sclerae normal Pupils: Equal, round and reactive pupils present EOM: EOMs intact bilaterally Direct Ophthalmoscopy: No no photophobia Neck Neck: Yes no lymphadenopathy, No tender and Yes no JVD Thyroid: Thyroid normal Carotids: no bruits Chest Chest palpation & inspection: no tenderness Resp Effort & Inspection: normal respiratory effort, audible wheezes, Actively coughing, not labored and no stridor Auscultation: no crackles, no rales, no rhonchi and no wheezes Cardio Jugular venous distension: no JVD Rate: regular rate, not bradycardic and not tachycardic Rhythm: regular rhythm Bruits: no carotid bruits Peripheral pulses: Peripheral pulses 2+ throughout GI Inspection: Yes normal to inspection, No abdominal wall ecchymosis and No visible herniation Palpation (GI): Soft to palpation, nontender, no guarding, not rigid and No hepatosplenomegaly present Auscultation: normoactive bowel sounds General: Yes no CVA tenderness Back/Spine/Pelvis Back: no CVA tenderness and No back tenderness Cervical Spine: cervical ROM normal Thoracic/Lumbar Spine: thoracic and lumbar spine normal to inspection, straight leg raise negative bilaterally, No thoraco-lumbar ROM limited and No lumbar spinal tenderness Skin Lesions: no lesions Rashes: no rashes Wounds: no wounds Neuro General: oriented to person, oriented to place, patient oriented x3, CN's II-XI intact bilaterally and No confusion Cranial nerves: Yes Equal, round and reactive pupils present and Yes Normal accommodation reflex present Cognition (Neuro): normal cognition Speech: No Abnormal speech present Gait exam (Neuro): Normal gait present Motor exam (neuro): 5/5 motor strength present throughout Extrem Right upper extremity: full ROM; no cyanosis Left upper extremity: full ROM; no cyanosis Right lower extremity: no edema Left lower extremity: no edema Psych Appearance: grossly normal Mental Status: mental status grossly normal Affect: normal affect Attitude: cooperative Thought process: Normal thought process present Assessment and Plan Assessment & Plan (1) Annual physical exam: Code(s): Z00.00 - Encounter for general adult medical examination without abnormal findings (2) HTN (hypertension): Code(s): I10 - Essential (primary) hypertension Qualifiers: Hypertension type: primary hypertension Qualified Code(s): I10 - Essential (primary) hypertension Plan: Patient's blood pressure acceptable today in office. Been hydrochlorothiazide 12.5 without any side effects.. Advised to monitor blood pressure at home with goal blood pressure to be below 140/90 (3) Tobacco dependence: Code(s): F17.200 - Nicotine dependence, unspecified, uncomplicated Plan: She has started Chantix which has benefit her greatly. She is down down to 7 cigarettes per day from 25 cigarettes a day.. She reports her breathing has been improved. (4) Acute bronchitis: Code(s): J20.9 - Acute bronchitis, unspecified Qualifiers: Bronchitis organism: unspecified organism Qualified Code(s): J20.9 - Acute bronchitis, unspecified Plan: As per HPI patient seems to have an acute bronchitis/COPD exacerbation at this time. Will supply patient with prednisone taper and antibiotic which has helped her in the past. (5) COPD (chronic obstructive pulmonary disease): Code(s): J44.9 - Chronic obstructive pulmonary disease, unspecified Qualifiers: COPD type: chronic bronchitis Chronic bronchitis type: simple Qualified Code(s): J41.0 - Simple chronic bronchitis Plan: As above (6) Breast cancer screening: Code(s): Z12.39 - Encounter for other screening for malignant neoplasm of breast Qualifiers: Breast cancer screening modality: mammogram Qualified Code(s): Z12.31 - Encounter for screening mammogram for malignant neoplasm of breast Plan: Patient willing to do mammogram (7) Colon cancer screening: Code(s): Z12.11 - Encounter for screening for malignant neoplasm of colon Plan: Patient willing to do Cologuard (8) Cervical cancer screening: Code(s): Z12.4 - Encounter for screening for malignant neoplasm of cervix Plan: Will try to set patient up with capper machine operator provider for Pap screening Orders: Orders XR chest 1V 03/29/24 J20.9 - Acute bronchitis, unspecified MM screening mammo BI 03/29/24 Z12.31 - Encounter for screening mammogram for malignant neoplasm of breast Referrals DIAGNOSTIC ASSISTANT Referral Z12.4 - Encounter for screening for malignant neoplasm of cervix Cologuard Test Z12.11 - Encounter for screening for malignant neoplasm of colon Medications: New doxycycline monohydrate 100 mg PO BID 10 days 20 caps 0RF J20.9 - Acute bronchitis, unspecified nicotine (polacrilex) 2 mg buccal Q2H 15 days PRN 110 ea 0RF nicotine cravings F17.200 - Nicotine dependence, unspecified, uncomplicated prednisone Take 3 tablets x3 days, 2 tablets x3 days, 1 tablet x3 days 10 mg PO DIRECTED 9 days 18 tabs 0RF J20.9 - Acute bronchitis, unspecified Refilled budesonide-formoterol 160-4.5 mcg/actuation (Symbicort) 1 inh inhalation BID 30 days 10.2 grams 3RF J41.0 - Simple chronic bronchitis hydrochlorothiazide 12.5 mg PO DAILY 90 tabs 1RF I10 - Essential (primary) hypertension Discontinued nicotine Discontinued Reason: Doctor's Order 1 patch transdermal DAILY 14 days 14 ea 0RF F17.200 - Nicotine dependence, unspecified, uncomplicated Coding Level of Care Code Est Pt Prev Care 40-64y(30068) Diagnoses Annual physical exam Z00.00 Primary hypertension I10 Hypertension type: primary hypertension Tobacco dependence F17.200 Acute bronchitis, unspecified organism J20.9 Bronchitis organism: unspecified organism Simple chronic bronchitis J41.0 COPD type: chronic bronchitis Chronic bronchitis type: simple Encounter for screening mammogram for malignant neoplasm of breast Z12.31 Breast cancer screening modality: mammogram Colon cancer screening Z12.11 Cervical cancer screening Z12.4 Additional Codes CATRINA-7 Assessment Billing - CATRINA-7 Assessment Tool: CATRINA-7 Assessment 77250 ([id number]) Vital Signs *Quality* - CPT code: 73736 - 4-10 Minutes ([id number])
[2024-03-29 09:08] VITALS: BP 132/66; PULSE 72; O2SAT 93; BMI 31.5
== END 2024-03-29 09:41 | disposition home or self-care (01) ==
PROVIDERS: PCP Physician Assistant; Visit Provider Physician Assistant
DX: Z00.00 Encounter for general adult medical examination without abnormal findings (principal); J41.0 Simple chronic bronchitis; F17.210 Nicotine dependence, cigarettes, uncomplicated; I10 Essential (primary) hypertension; J20.9 Acute bronchitis, unspecified; Z12.31 Encounter for screening mammogram for malignant neoplasm of breast; Z12.11 Encounter for screening for malignant neoplasm of colon

== ENCOUNTER → 2024-03-29 08:45 | Outpatient (BNVA) | payer OTHER, SELFPAY | PROVIDERS: PCP Physician Assistant; Visit Provider Physician Assistant | DX: Z00.01 Encounter for general adult medical examination with abnormal findings (principal); I10 Essential (primary) hypertension; J20.9 Acute bronchitis, unspecified; J41.0 Simple chronic bronchitis; F17.200 Nicotine dependence, unspecified, uncomplicated; Z71.6 Tobacco abuse counseling | CPT/HCPCS: 96127; 99396 ==

== ENCOUNTER 2024-08-28 08:28 | Outpatient (AMB) | payer OTHER, SELFPAY ==
--- NOTE | 2024-08-28 08:40 | MHC.PC.OV ---
Vital Signs 08/28/24 08:41 Height 5 ft 7 in Weight 205 lb 6 oz BMI 32.2 BP 140/82 H Blood Pressure Location Lt brachial Position Sitting Pulse 78 Pulse Source Pulse Oximeter Temp 97.5 F Temp Source Temporal Artery Scan Pulse Oximetry (%) 98 Oxygen Delivery Method Room Air Intake Visit Reasons: f/u COPD/ SMoking cessation. Floral Designer Required: No Accompanied by: Self / Same As Patient Allergies No Known Allergies Allergy (Verified 08/28/24 09:06) Medication List - Last Reconciled 08/28/24 by Mau Noriega PA-C albuterol sulfate 90 mcg/actuation 1 inh inhalation QID 30 days blood pressure test kit-large Testing once a day as needed budesonide-formoterol 160-4.5 mcg/actuation (Symbicort) 1 inh inhalation BID 30 days budesonide-formoterol 160-4.5 mcg/actuation (Symbicort) 1 inh inhalation BID 30 days fluticasone propionate 50 mcg/actuation (Flonase Allergy Relief) 1 spray intranasal BID 30 days hydrochlorothiazide 12.5 mg PO DAILY hydrochlorothiazide 12.5 mg PO DAILY loratadine 10 mg PO DAILY 30 days lorazepam 0.5 mg PO DAILY PRN 10 days meloxicam 15 mg PO DAILY 15 days nicotine (polacrilex) 2 mg buccal Q2H PRN 15 days Tobacco use date assessed: 08/28/24 Dental Screening Dental Screen Date: 08/28/24 Did you have a dental visit in the last 12 months?: Yes Did you have a dental problem in the last 6 months where you did not have access to dental care?: No Was dental information given to patient?: Patient has dentist HPI f/u COPD/ SMoking cessation. HPI Details Patient is a 49-year-old female here today for a follow-up visit Patient has a past medical history significant for obesity and? HLD, tobacco dependency, COPD. Concern--> The patient has experienced continuous tinnitus for three years, becoming louder recently, reportedly affecting her voice volume. She has also noted dysphagia for some time, with sensations of obstruction in the throat when swallowing, and a history of esophageal issues requiring a barium swallow test several years prior. A small nodular swelling in the throat, thought to be related to the thyroid in the past, has been noted by the patient. .. HTN : Patient's blood pressure slightly elevated today in office. Recently had the flu and has been taking ibuprofen which can be causes of her slight elevation in her blood pressure.. She continues on hydrochlorothiazide 12.5 with good effect. .. History of Hyperlipidemia: Recent fasting lipid panel showing appropriate LDL and total cholesterol. COPD/Tobacco dependency:? Has been smoking since age 15, she has recently reduced her smoking down to quarter of pack a day. She also reports her breathing has been much better since she has reduced her cigarette smoking. PFS Surgical History H/O LEEP Family History Father CVA (cerebral vascular accident), Onset Age: 42 Mother DMII (diabetes mellitus, type 2) Other Hypertension Substance abuse Social History Housing: Apartment Alcohol intake: former Year quit: 2013 Patient Tobacco Use Status: Current everyday Tobacco user Tobacco use type: Cigarette Cigarettes Per Day: 3 e-Cigarette/Vaping Use: Never Used Second Hand Smoke Exposure: No service: No Current occupational status: employed Current occupation: [employer] Current occupational exposures/hazards: No Cognitive needs: No Hearing needs: No Vision needs: No Questionnaire PHQ-9 Over the last 2 weeks, how often have you been bothered by any of the following problems? 1. Little interest or pleasure in doing things: not at all 2. Feeling down, depressed, or hopeless: not at all 3. Trouble falling or staying asleep, or sleeping too much: not at all 4. Feeling tired or having little energy: not at all 5. Poor appetite or overeating: not at all 6. Feeling bad about yourself - or that you are a failure or have let yourself or your family down: not at all 7. Trouble concentrating on things, such as reading the newspaper or watching television: not at all 8. Moving or speaking so slowly that other people could have noticed. Or the opposite - being so fidgety or restless that you have been moving around a lot more than usual: not at all 9. Thoughts that you would be better off or of hurting yourself in some way: not at all Total score: 0 Depression Screening Interpretation: Negative Depression Screening Done: Yes 93915 - PHQ-9 Billing: Yes Source: Developed by Drs. Carlos Manuel Ramsey, Terri Hope, Stuart Woodson and colleagues, with an educational lauren from [employer]. Thrive Questionnaire Date Thrive assessed: 08/28/24 I am a: Patient What is your living situation today?: I have a steady place to live Within the past 12 months, did the food you bought not last and you didn't have the money to get more?: Never true Within the past 12 months, did you worry whether your food would run out before you got money to buy more?: I choose not to answer this question Do you have trouble paying for medicines?: No Do you have trouble getting transportation to medical appointments?: No Do you have trouble paying your heating and electricity bill?: No Do you have trouble taking care of your child, family member or friend?: No Do you have trouble with day-to-day activities such as bathing, preparing meals, shopping, managing finances, etc.?: No Are you currently unemployed and looking for a job?: No Are you interested in more education?: No Please select the resources that you would like help with: None Currently or been in a relationship where the following occur: No concerns reported THRIVE Score: 0 AUDIT C Alcohol Use Questionnaire (AUDIT-C) 1. How often do you have a drink containing alcohol?: Never 3. How often do you have six or more drinks on one occasion?: Never Total Score: 0 CATIRNA-7 AMB Questionnaire CATRINA-7 Date CATRINA - 7 assessed: 08/28/24 Feeling nervous, anxious, or on edge: 0 = Not at all Not being able to stop or control worryin = Not at all Worrying too much about different things: 0 = Not at all Trouble relaxin = Not at all Being so restless that it is hard to sit still: 0 = Not at all Becoming easily annoyed or irritable: 0 = Not at all Feeling afraid as if something awful might happen: 0 = Not at all Total CATRINA-7 score (0-4 normal; 5-9 mild; 10-14 moderate; 15-21 severe): 0 Source: Developed by Drs. Carlos Manuel Ramsey, Terri Hope, Stuart Woodson and colleagues, with an educational lauren from [employer]. CATRINA-7 Assessment Billing CATRINA-7 Assessment Tool: CATRINA-7 Assessment 69421 Review of Systems Const Denies headache(s) Eyes Denies loss of vision ENT Denies vertigo, Denies dizziness, Denies headache(s) and Denies sore throat Card Denies chest pain, Denies leg edema and Denies lightheadedness Resp Denies cough, Denies hemoptysis and Denies wheezing GI Denies abdominal pain, Denies melena, Denies constipation, Denies diarrhea and Denies vomiting Denies urinary frequency, Denies dysuria and Denies urinary urgency Musc Denies arthralgias, Denies joint swelling, Denies numbness and Denies tingling Neuro Denies Abnormal speech present, Denies behavioral changes, Denies vertigo, Denies dizziness, Denies headache(s), Denies loss of vision, Denies memory loss, Denies numbness and Denies tingling Psych Denies anxiety, Denies behavioral changes, Denies depression, Denies memory loss and Denies panic attacks Sukumar/Lymph Denies easy bleeding and Denies easy bruising Aller/Immun Denies wheezing Physical exam (Primary Care) Vital Signs: Last Vital Signs Temp 97.5 F 08/28/24 08:41 Pulse 78 08/28/24 08:41 BP 140/82 H 08/28/24 08:41 Pulse Ox 98 08/28/24 08:41 Oxygen Delivery Method Room Air 08/28/24 08:41 BMI result Body Mass Index 32.2 Tobacco/Smoking Status: Tobacco use Status Tobacco use date assessed 08/28/24 08/28/24 08:46 Patient Tobacco Use Status Current everyday Tobacco 08/28/24 08:41 Tobacco use type Cigarette 08/28/24 08:41 e-Cigarette/Vaping Use Never Used 08/28/24 08:41 Are you ready to quit: No Tobacco cessation counseling provided: Yes Items discussed: Nicotine replacement Relapse Prevention: discussed the importance of a supportive environment, discussed negative mood or depression after quitting, weight gain after smoking is common and discussed dietary, exercise and/or lifestyle changes Number of minutes spent counselin CPT code: 56154 - 4-10 Minutes PHQ-9: PHQ-9 Score PHQ-9: Total score 0 08/28/24 08:46 Depression Screening Interpretation: Negative Thrive Assessment: Date of Thrive Assessment Date Thrive assessed 08/28/24 08/28/24 08:41 Currently or been in a relationship where the following occur: No concerns reported Const General: healthy appearing, no acute distress, alert and awake Nutritional Appearance: well nourished Orientation/consciousness: oriented to person, oriented to place and oriented to time HENMT Ears: TM's normal bilaterally General nose exam: Normal nasal mucous membranes and turbinates present Eyes Conjunctivae: conjunctivae normal Sclerae: sclerae normal Pupils: Equal, round and reactive pupils present Neck Neck: Yes no lymphadenopathy and Yes no JVD Thyroid: Thyroid normal Carotids: no bruits Neck images: 1. PALPABLE FULLNESS OVER THE RIGHT SIDE OF HER ANTERIOR NECK. Resp Effort & Inspection: normal respiratory effort and not tachypneic Auscultation: no crackles, no rales, no rhonchi and no wheezes Cardio Rate: regular rate Rhythm: regular rhythm Heart sounds: no murmurs and normal S1 and S2 GI Palpation (GI): Soft to palpation, nontender, no hepatomegaly and no splenomegaly Auscultation: normal bowel sounds Skin General skin exam: no rashes or lesions noted and dry skin Neuro General: oriented to person, oriented to place and oriented to time Cranial nerves: Yes Equal, round and reactive pupils present Speech: No Abnormal speech present Gait exam (Neuro): Normal gait present Motor exam (neuro): no tremor noted Extrem Right upper extremity: full ROM Left upper extremity: full ROM Right lower extremity: full ROM; no edema Left lower extremity: full ROM; no edema Psych Mental Status: mental status grossly normal Speech and movement: Normal speech and movement present Affect: normal affect Attitude: cooperative Thought process: Normal thought process present Coding Level of Care Code Est Pt Level 4 (72356) Diagnoses Simple chronic bronchitis J41.0 COPD type: chronic bronchitis Chronic bronchitis type: simple Primary hypertension I10 Hypertension type: primary hypertension Pure hypercholesterolemia E78.00 Hyperlipidemia type: pure hypercholesterolemia CATRINA (generalized anxiety disorder) F41.1 Tobacco dependence F17.200 Tinnitus, bilateral H93.13 Dysphasia R47.02 Thyromegaly E01.0 Additional Codes CATRINA-7 Assessment Billing - CATRINA-7 Assessment Tool: CATRINA-7 Assessment 63396 ([id number]) PHQ-9 - 60288 - PHQ-9 Billing: Yes ([id number]) Vital Signs *Quality* - CPT code: 90717 - 4-10 Minutes ([id number]) Assessment & Plan Assessment & Plan (1) COPD (chronic obstructive pulmonary disease): Code(s): J44.9 - Chronic obstructive pulmonary disease, unspecified Category: Medical Qualifiers: COPD type: chronic bronchitis Chronic bronchitis type: simple Qualified Code(s): J41.0 - Simple chronic bronchitis Plan: Patient does report reducing her smoking. She reports recently having the flu and bronchitis that she has nearly recovered from. She does she needs to completely quit smoking. She declines my offers to start nicotine replacement and or medication. (2) HTN (hypertension): Code(s): I10 - Essential (primary) hypertension Category: Medical Qualifiers: Hypertension type: primary hypertension Qualified Code(s): I10 - Essential (primary) hypertension Plan: Patient's blood pressure slightly elevated today in office. She has been a bit sick with a bronchitis and has been using ibuprofen due to muscle aches. Previously her blood pressure well controlled with hydrochlorothiazide 12.5. Will continue to monitor and if blood pressure above 140/90 consistently will make an adjustment in her hypertensive medication regime. Goal blood pressure to be below 140/90 (3) HLD (hyperlipidemia): Code(s): E78.5 - Hyperlipidemia, unspecified Category: Medical Qualifiers: Hyperlipidemia type: pure hypercholesterolemia Qualified Code(s): E78.00 - Pure hypercholesterolemia, unspecified Plan: Most recent panel showing good control over total cholesterol and LDL. Will continue lifestyle and dietary modifications. (4) CATRINA (generalized anxiety disorder): Code(s): F41.1 - Generalized anxiety disorder Category: Medical Plan: Patient's CATRINA-7 score 0, she does have a history of anxiety. She reports a lot less stress in her life recently. (5) Tobacco dependence: Code(s): F17.200 - Nicotine dependence, unspecified, uncomplicated Category: Medical Plan: Patient does understand she needs to quit smoking. Declines my offer to start nicotine replacement at this time. (6) Tinnitus, bilateral: Code(s): H93.13 - Tinnitus, bilateral Category: Medical Plan: Refer to ENT for evaluation of tinnitus and dysphagia. (7) Dysphasia: Code(s): R47.02 - Dysphasia Category: Medical Plan: I proposed evaluation for her swallowing difficulties and thyroid concerns, with an MRI or barium swallow as potential diagnostics. The patient was receptive to seeking ENT evaluation for the persistent tinnitus and possible esophageal issues. (8) Thyromegaly: Code(s): E01.0 - Iodine-deficiency related diffuse (endemic) goiter Category: Medical Plan: Noted fullness over the anterior neck, in the setting of mild dysphagia will send for ultrasound thyroid to evaluate for nodule Orders: Orders Microalbumin, Random (w Creat) Today I10 - Essential (primary) hypertension Complete Blood Count no Diff Today E78.00 - Pure hypercholesterolemia, unspecified Comprehensive [place]. Panel Fast Today E78.00 - Pure hypercholesterolemia, unspecified TSH reflex Free T4 Today E01.0 - Iodine-deficiency related diffuse (endemic) goiter Lipid Panel Today E78.00 - Pure hypercholesterolemia, unspecified [place] barium swallow Today R47.02 - Dysphasia US thyroid Today E01.0 - Iodine-deficiency related diffuse (endemic) goiter Referrals Speech and Hearing Referral H93.13 - Tinnitus, bilateral Ear/Nose/Throat Referral F17.200 - Nicotine dependence, unspecified, uncomplicated, R47.02 - Dysphasia Medications: Refilled albuterol sulfate 90 mcg/actuation 1 inh inhalation QID 30 days 8.5 grams 3RF shortness of breath or wheezing J41.0 - Simple chronic bronchitis budesonide-formoterol 160-4.5 mcg/actuation (Symbicort) 1 inh inhalation BID 30 days 10.2 grams 3RF J41.0 - Simple chronic bronchitis hydrochlorothiazide 12.5 mg PO DAILY 90 tabs 1RF I10 - Essential (primary) hypertension fluticasone propionate 50 mcg/actuation (Flonase Allergy Relief) administer into each nostril 1 spray intranasal BID 30 days 16 grams 1RF J30.9 - Allergic rhinitis, unspecified Patient Instructions: Goal: Blood pressure to be below 140/90, completely stop smoking Barriers: Adherence to physical activity and healthy eating habits. Availability of cigarettes
[2024-08-28 08:41] VITALS: BP 140/82; PULSE 78; TEMP 36.4; O2SAT 98; BMI 32.2
--- OUTSIDE RECORDS SUMMARY | 2024-08-28 08:49 | XMS_ITS | Clinical Summary ---
Author Organization [facility] it Address [address] [place] [address] Care Team Providers Care Management Retail Intern Name Role Phone Unavailable Primary Care Provider Unavailabl e Surgical History Surgery Date Site/Laterality Comments VAGINOSCOPY PROCEDURE: AL COLPOSCOPY CERVIX VAG LOOP ELTRD BX CERVIX; COMMENT: 1999 TUBAL LIGATION 2004 PROCEDURE: HISTORICAL TUBAL LIGATION TONSILLECTOMY PROCEDURE: HISTORICAL TONSILLECTOMY; COMMENT: 13 yo Medical History Medical History Date Comments Anxiety state, unspecified 11/04/2005 DX:An xiety state, unspecified Family History Medical History Relation Name Comments Breast cancer Aunt 1 Hypertension Father Other: Hep C Father unknown cause o f tansmission Other cancer Maternal Grandmother cervica l Hypertension Mother Relation Name Status Comments Aunt 1 Aunt 2 Daughter Alive Cloie Father Alive Maternal Grandfather Alive Maternal Grandmother Cervica l [place], emphysema Mother Alive Paternal Grandfather Paternal Grandmother Social History Tobacco Use Types Packs/Day Years Used Date Smoking Tobacco: Every Day Cigarettes Smokeless Tobacco: Never Alcohol Use Standard Drinks/Week Comments No 0 (1 standard drink = 0.6 oz pur e alcohol) Comments Unknown Sex and Gender Information Value Date Recorded Sex Assigned at Not on file Legal Sex Female 3:36 AM EST Gender Identity Not on file Sexual Orientation Not on file Obstetrics History Plan of Treatment Health Maintenance Due Date Last Done Comments Hepatitis B Vaccines (1 of 3 - 19+ 3-dose series) 1995 Pneumococcal Vaccine: Pediat rics (0 to 5 Years) and At-Risk Patients (6 to 64 Years) (1 of 2 - PCV) 1995 Cervical Cancer Screening: P ap Smear 1997 DTaP,Tdap,and Td Vaccines (2 - Td or Tdap) 09/10/2019 09/09/2009 Breast Cancer Screening 12/02/2019 12/01/2017 Cholesterol Screening (Lipid Panel) 08/09/2023 Colorectal Cancer Screening: Colonoscopy 08/09/2023 Depression Screening 08/09/2023 HIV Screening 08/09/2023 Hepatitis C Screening 08/09/2023 Social Influencers of Health Screening 08/09/2023 COVID-19 Vaccine ( - 2023-2 5 season) 2024 Influenza Vaccine (#1) 2024 HIB Vaccines Aged Out No longer eligi ble based on patient's age to complete this topic HPV Vaccines Aged Out No longer eligi ble based on patient's age to complete this topic Hepatitis A Vaccines Aged Out No long er eligible based on patient's age to complete this topic IPV Vaccines Aged Out No longer eligi ble based on patient's age to complete this topic MMR Vaccines Aged Out No longer eligi ble based on patient's age to complete this topic Meningococcal ACWY Vaccine Aged Out N o longer eligible based on patient's age to complete this topic Meningococcal B Vacine Aged Out No lo nger eligible based on patient's age to complete this topic RSV Immunization Patients Un elvira 20 months Aged Out No longer eligible b ased on patient's age to complete this topic Varicella Vaccines Aged Out No longer eligible based on patient's age to complete this topic Procedures Procedure Name Priority Date/Time Associated Diagnosis Comments [facility] SCREENING DIGITAL Routine 12/01/2017 10:35 AM EDT Encounter for screening mammogram for malignant neoplasm of breast from Last 3 Months or Most Recently Relevant to Health Maintenance Results * [facility] SCREENING DIGITAL (12/01/2017 10:35 AM EDT) Anatomical Region Laterality Modality Mammography 12/01/2017 9:12 AM EDT Narrative 12/01/2017 10:[address] [facility] Diagnostic Imaging Department [address] [place] [id number] Patient: ??NIKA [place] ?/Age/Sex: 1975 - 42 - F Unit#: ??[id number] ? Location/Status: ??SPDIMAM/REG CLI ? Mnemonic/Ordering Site: ??DIGSC/SPMAM Ordering Physician: ??DANIAL SANZ MD [facility]ree Screening Digital - 12/01/17 - 928 INDICATION: Screening.History of breast cancer in paternal aunt COMPARISON: Prior mammograms dating back to 2016 TECHNIQUE: Routine views of both breasts were obtained using full-field direct digital mammography. Bilateral tomosynthesis was performed in MLO projection. Computer Aided Detection was utilized. BREAST PARENCHYMAL COMPOSITION: The breast parenchyma is heterogeneously dense which may obscure the detection of small masses. (Category C density) FINDINGS: ??There is no suspicious finding within either breast. Stable asymmetry in the lateral aspect of the right breast. IMPRESSION: 1. No mammographic evidence of malignancy. 2. Annual screening mammography is recommended . 3. If there is an elevated lifetime risk of breast cancer, given the breast density, screening with MRI may be considered. OVERALL FINAL ASSESSMENT: BI-RADS Assessment Category 2: Benign. PQRI CPT II 3342 F A negative mammogram in the presence of clinically suspicious palpable abnormality does not preclude the possibility of malignancy or alter the indications for biopsy. Note: Patient information entered into a reminder system with a target due date for the next mammogram: ??CPT II 7025F G0202/93098 [id number] Dictating Physician: ??CHARLENE LERNER MD Electronically Signed by: ??CHARLENE LERNER MD Dic Date/Time: ??12/01/17 1031 Sign date/Time: ??12/01/17 1035 Procedure Note Charlene Lerner MD - 06/29/2022 [facility] Diagnostic Imaging Department [address] [place] [id number] Patient: NIKA [place] Rica Wilkes./Age/Sex: 1975 - 42 - F Unit#: [id number] Location/Status: SPDIMAM/REG CLI Mnemonic/Ordering Site: [facility] Ordering Physician: DANIAL SANZ MD Aubree Screening Digital - 12/01/17928 INDICATION: Screening.History of breast cancer in paternal aunt COMPARISON: Prior mammograms dating back to 2016 TECHNIQUE: Routine views of both breasts were obtained using full-fielddirect digital mammography. Bilateral tomosynthesis was performed in MLOprojection. Computer Aided Detection was utilized. BREAST PARENCHYMAL COMPOSITION: The breast parenchyma is heterogeneouslydense which may obscure the detection of small masses. (Category C density) FINDINGS: There is no suspicious finding within either breast. Stable asymmetry in the lateral aspect of the right breast. IMPRESSION: 1. No mammographic evidence of malignancy. 2. Annual screening mammography is recommended . 3. If there is an elevated lifetime risk of breast cancer, given thebreast density, screening with MRI may be considered. OVERALL FINAL ASSESSMENT: BI-RADS Assessment Category 2: Benign. PQRI CPT II 3342 F A negative mammogram in the presence of clinically suspicious palpable abnormality does not preclude the possibility of malignancy or alter the indications for biopsy. Note: Patient information entered into a reminder system with a target duedate for the next mammogram: CPT II 7025F [id number] Dictating Physician: CHARLENE LERENR MD Electronically Signed by: CHARLENE LERNER MD Dic Date/Time: 12/01/17 1031 Sign date/Time: 12/01/17 1035 Danial Sanz MD IMG BI PROCEDURES Final Resu lt from Last 3 Months or Most Recently Relevant to Health Maintenance
== END 2024-08-28 09:23 | disposition home or self-care (01) ==
PROVIDERS: PCP Physician Assistant; Visit Provider Physician Assistant
DX: J41.0 Simple chronic bronchitis (principal); I10 Essential (primary) hypertension; E78.00 Pure hypercholesterolemia, unspecified; F41.1 Generalized anxiety disorder; F17.200 Nicotine dependence, unspecified, uncomplicated; H93.13 Tinnitus, bilateral; R47.02 Dysphasia; E01.0 Iodine-deficiency related diffuse (endemic) goiter

== ENCOUNTER → 2024-08-28 08:28 | Outpatient (BNVA) | payer OTHER, SELFPAY | PROVIDERS: PCP Physician Assistant; Visit Provider Physician Assistant | DX: J41.0 Simple chronic bronchitis (principal); I10 Essential (primary) hypertension; E78.00 Pure hypercholesterolemia, unspecified; F41.1 Generalized anxiety disorder; H93.13 Tinnitus, bilateral; R47.02 Dysphasia; E01.0 Iodine-deficiency related diffuse (endemic) goiter; F17.200 Nicotine dependence, unspecified, uncomplicated; Z71.6 Tobacco abuse counseling | CPT/HCPCS: 96127; 99212 ==